=== PATIENT | female | born 1985 | race Two or more races ===

== ENCOUNTER 2024-09-25 22:56 | Emergency (ER) | payer MEDICAID, SELFPAY ==
[2024-09-25 22:57] VITALS: BMI 35.9
--- NOTE | 2024-09-25 23:52 | XR_ITS ---
Examination: CT abdomen and pelvis without contrast. Coronal 3-D reconstructions. Sagittal 2-D reconstructions. Date and time of exam:September 26, 2024 0238 hours INDICATIONS: Onset abdominal pain and right upper abdomen tenderness today CTDI: vol (mGy): 11 DLP: (mGycm): 630 Technique: Axial images of the abdomen have been obtained, 3 mm slice thickness Intravenous contrast material has not been administered. Low dose protocols were performed. One or more of the following dose reduction techniques were used; automated exposure control, adjustment of the mA and/or KV according to patient size, use of iterative reconstruction technique. Findings: Fatty infiltration throughout the liver, no gallstones No pancreatic mass No renal or ureteral calculi Aorta normal size Appendix is mildly thickened but no periappendiceal inflammatory change I do not visualize definite colitis of the descending colon or other portions of the colon No pelvic mass The osseous structures are intact IMPRESSION: The appendix is mildly thickened but no periappendiceal inflammatory change, the appearance should be clinically correlated
--- NOTE | 2024-09-26 | XR_ITS ---
Examination: Abdomen sonogram, Limited Date and time of exam: September 26, 2024 0146 hours INDICATIONS: Epigastric pain beginning today Technique: Real-time perez scale transabdominal sonographic images of the upper abdomen obtained. Findings: Normal gallbladder Common bile duct 0.7 cm Pancreatic head 2.9 cm There are 15.7 cm fatty infiltration no focal liver lesions Normal hepatopedal portal venous flow Peak IVC IMPRESSION: Common bile duct enlargement 0.7 cm no definite stones, if biliary colic is a cortical consideration, suggest MRCP follow-up
--- NOTE | 2024-09-26 00:01 | EDNOTE_ITS ---
ED Abdominal Pain RME/HPI General Chief Complaint: Abdominal Pain Stated complaint: DIARRHEA, ABD PAIN Time seen by provider: 09/25/24 23:51 Arrival date/time: 09/25/24 22:56 RME / HPI RME / HPI narrative: This section includes all my notes and documentations, including HPI, PE, and ED course. Sam Agrawal MD HPI: 39 y/o female presents to ED c/o lower abdominal pain, diarrhea, nausea for a few days, severe in the past 12 hours. Denies vomiting and fever. Patient has not been eating or drinking normally today. Denies possibility of being and reports LMP was 08/29/2024. Also denies any history if abdominal surgery. No other complaints. ROS: All negative except as documented in HPI. Physical Exam: General: Alert and oriented. Appears uncomfortable. Eyes: Conjunctivae and lids clear. ENT: No nasal congestion. Neck: Supple. Heart: RRR. Lungs: No respiratory distress. Good air movement. No rhonchi, wheezing, rales. Abdomen: Soft with diffuse tenderness, difficult to localize. Normal bowel sounds. No distension. No rebound or guarding. Back: No CVA tenderness. Skin: Warm and dry. Neuro: Alert and oriented X 3. I reviewed all diagnostic test results. My review of the abdominal CT report is colitis. My review of the gallbladder US report is NAD. Blood tests and urine tests unremarkable. At this point, diagnoses include colitis. Treatment here included IV fluid, Toradol, Zofran, Dilaudid, Levaquin, Flagyl. Significant improvement noted. Recommended more outpatient care. Based on my best medical judgment, made decision no further evaluation or treatm ent indicated at this time. Patient understands and agrees to the discharge instructions customized and printed, see below. Discharge instructions from Dr. Agrawal: 1. After extensive evaluation, your symptoms are due to colitis, infection/inflammation of your colon. 2. Take Cipro and Flagyl for the infection. 3. Zofran for nausea/vomiting. 4. Tylenol with codeine for severe pain. 5. Clear liquid diet for 24 hours then advance as tolerated. 6. For diarrhea, don't take anything to stop it. But replenish the fluid and electrolytes you are losing. To prevent dehydration, increase oral fluid and maintain clear urine.? If dark or yellow, increase oral fluid. Some good choices are water (but not only water because it will cause electrolyte abnormalities), sports drinks like Gatorade (with less sugar content), coconut water, chicken stock, and other fluid with electrolytes (like Pedialyte). 7. See a private doctor on 09/27/2024 for recheck. Ask to review all test results and official radiology reports, to make sure you receive all necessary follow-ups and monitoring. To assess for serious intra-abdominal condition, ask for help with more investigation not available here in the ER. Such as EGD or scoping the stomach, colonoscopy or scoping the colon, and referral to see instrument repair technician. 8. Seek immediate medical care with worsening, fever, or with any concerns. Sam Agrawal MD Related Data Previous Rx's ?Medication ?Instructions ?Recorded sulfamethoxazole 800 See Rx Instructions .Route 1 07/01/17 mg-trimethoprim 160 mg tablet .COMPLEX #20 tabs (Bactrim DS) acetaminophen 300 mg-codeine 30 mg 2 tab PO Q8H PRN pa in #20 tabs 09/26/24 tablet ciprofloxacin HCl 500 mg tablet 500 mg PO BID #20 tabs 09/26/24 (Cipro) metronidazole 500 mg tablet 500 mg PO BID 10 days #20 tabs 09/26/24 ondansetron 4 mg disintegrating 4 mg PO TID PRN nausea and 09/26/24 tablet vomiting 30 days #10 tabs Allergies Allergy/AdvReac Type Severity Reaction Status Date / Time No Known Allergies Allergy Verified 04/30/18 13:00 Review of Systems Review of Systems Systems Reviewed: All systems reviewed, normal except as documented ED Exam Narrative Physical exam: Refer to HPI above Course Quality Measures none Orders Category Date Time Status Saline [Insert IV] NOW Care 09/25/24 23:51 Active Straight [In and Out Catheter] X1 Care 09/25/24 23:[address] abdomen pelvis wo con Stat Exams 09/25/24 23:52 Taken US gall bladder Stat Exams 09/26/24 00:00 Taken Amylase Stat Lab 09/25/24 00:25 Completed Bilirubin,Direct Stat Lab 09/25/24 00:25 Completed CBC Stat Lab 09/25/24 00:25 Completed CMP [Comprehensive Metabolic Panel] Stat Lab 09/25/24 00:25 Completed HCG Qualitative,Urine Stat Lab 09/26/24 01:56 Completed HCG,Qualitative Serum Stat Lab 09/25/24 00:25 Completed Lipase Stat Lab 09/25/24 00:25 Completed Magnesium Stat Lab 09/25/24 00:25 Completed UA, C/S IF [Urinalysis, C/S if Indicated] Stat Lab 09/26/24 01:56 Completed HYDROmorphone INJ [Dilaudid Inj] Med 09/26/24 03:24 Discontinued 1 mg IVP X1 ONE Ketorolac Inj [Toradol Inj] Med 09/25/24 23:51 Discontinued 30 mg IVP X1 ONE Levofloxacin [Levaquin] Med 09/26/24 04:10 Discontinued 500 mg PO X1 ONE Ondansetron Inj [Zofran Inj] Med 09/25/24 23:51 Discontinued 4 mg IV X1 ONE Sodium Chloride 0.9% 1000 ml [Ns] 1,000 ml Med 09/25/24 23:51 Discontinued IV 999 mls/hr metroNIDAZOLE [Flagyl] Med 09/26/24 04:10 Discontinued 500 mg PO X1 ONE Vital Signs Vital signs: Vital Signs Temperature 97.9 F 09/26/24 00:40 Pulse Rate 68 09/26/24 00:40 Respiratory Rate 12 09/26/24 00:40 Blood Pressure 113/69 09/26/24 00:40 Pulse Oximetry (%) 100 09/26/24 00:40 Oxygen Delivery Method CPAP 09/26/24 00:40 Abdominal Pain MDM MDM Narrative MDM Narrative:: Scribe Attestation: Jessica Peterson am scribing for and in the presence of Dr. Agrawal. Provider Notation: Although this document has been carefully reviewed, there may still be some phonetic and other typographical errors.? These errors are purely grammatical due to imperfections in the software program and should not be construed in any way to? compromise the substance of the patient's medical care during this visit. 39 y/o female presents to ED c/o lower abdominal pain, diarrhea, dysuria, and decreased urinary urgency x approximately 10 hours. Patient data External records reviewed:: [facility] previous records (No recent ED records available for review.) Clinical information provided by:: patient Social determinants that could affect healthcare access:: none Patient has the following chronic illnesses:: None reported How is presenting disease/condition affected by chronic disease/condition?: no chronic disease Evaluation data The following diagnostics were reviewed and interpreted by me:: lab results and radiology exam(s) Lab and/or radiology exams considered but not ordered:: None Interpretation Summary: I reviewed all diagnostic test results. My review of the abdominal CT report is colitis. My review of the gallbladder US report is NAD. Blood tests and urine tests unremarkable. Medications / Prescriptions Medications or Prescriptions considered but not ordered:: None Medication administrations:: Medication Administration History Discontinued Medications Hydromorphone HCl (Hydromorphone Inj 2 Mg/Ml Vial) 1 mg IVP X1 ONE Stop: 09/26/24 03:25 Sodium Chloride (Ns) 1,000 mls @ 999 mls/hr IV .Q1H1M ONE Stop: 09/26/24 00:51 Last Admin: 09/26/24 00:32 Dose: 999 mls/hr Documented By: TARUN Ketorolac Tromethamine (Ketorolac Inj 30 Mg/Ml Vial) 30 mg IVP X1 ONE Stop: 09/25/24 23:52 Last Admin: 09/26/24 01:33 Dose: 30 mg Documented By: TARUN Levofloxacin (Levofloxacin 250 Mg Tablet) 500 mg PO X1 ONE Stop: 09/26/24 04:11 Metronidazole (Metronidazole 250 Mg Tablet) 500 mg PO X1 ONE Stop: 09/26/24 04:11 Ondansetron HCl (Ondansetron Inj 2 Mg/Ml Inj 2 Ml) 4 mg IV X1 ONE; Protocol Stop: 09/25/24 23:52 Last Admin: 09/26/24 00:29 Dose: 4 mg Documented By: TARUN Treatment here included IV fluid, Toradol, Zofran, Dilaudid, Levaquin, Flagyl. Consultations Consultation(s) initiated? (list below): No Diagnosis Differential diagnosis abdominal pain: abdominal pain, acute appendicitis, calc ulus of kidney, constipation, diverticulitis, gastroenteritis, pancreatitis, small bowel obstruction and other (Colitis) Most likely diagnosis given after review of the tests above:: Colitis Admission Indicated Admission indicated?: not indicated Explain why admission is indicated or not indicated:: With significant improvement, there was no indication for admission. Admission Request Was there a request for admission?: No Disposition Plan Disposition Plan: Discharge Discharge Attestation Discharge Attestation: The patient and all family members were given an opportunity to ask questions and understood the discharge instructions. Discharge instructions specifically effects, indications for sooner follow up or return to the emergency department, and the expected course of current diagnosis. Patient condition: Stable Discharge Plan Plan Patient Disposition: HOME (Self Care) Prescriptions/Referrals Prescriptions/Med Rec: New metronidazole 500 mg tablet 500 mg PO BID 10 Days Qty: 20 0RF acetaminophen-codeine 300-30 mg tablet 2 tab PO Q8H MDD 6 PRN (Reason: pain) Qty: 20 0RF ciprofloxacin HCl [Cipro] 500 mg tablet 500 mg PO BID Qty: 20 0RF ondansetron 4 mg tablet,disintegrating 4 mg PO TID PRN (Reason: nausea and vomiting) 30 Days Qty: 10 0RF No Action sulfamethoxazole-trimethoprim [Bactrim DS] 800-160 mg tablet See Rx Instructions .ROUTE .COMPLEX Qty: 20 0RF Rx Instructions: 1 tablet p.o. twice daily for 10 days Referrals: Aron English MD [Primary Care Provider] - In 1 week Problem List Clinical Impression: Colitis Patient/Caregiver Discharge Instructions Discharge Activity: activity as tolerated Education Materials: ED Crohn's Disease, ED Ulcerative Colitis Additional Instructions: Discharge instructions from Dr. Agrawal: 1. After extensive evaluation, your symptoms are due to colitis, inf ection/inflammation of your colon. 2. Take Cipro and Flagyl for the infection. 3. Zofran for nausea/vomiting. 4. Tylenol with codeine for severe pain. 5. Clear liquid diet for 24 hours then advance as tolerated. 6. For diarrhea, don't take anything to stop it. But replenish the fluid and electrolytes you are losing. To prevent dehydration, increase oral fluid and maintain clear urine.? If dark or yellow, increase oral fluid. Some good choices are water (but not only water because it will cause electrolyte abnormalities), sports drinks like Gatorade (with less sugar content), coconut water, chicken stock, and other fluid with electrolytes (like Pedialyte). 7. See a private doctor on 09/27/2024 for recheck. Ask to review all test results and official radiology reports, to make sure you receive all necessary follow-ups and monitoring. To assess for serious intra-abdominal condition, ask for help with more investigation not available here in the ER. Such as EGD or scoping the stomach, colonoscopy or scoping the colon, and referral to see instrument repair technician. 8. Seek immediate medical care with worsening, fever, or with any concerns. Instrucciones de david del Dr. Agrawal: 1. Tras ruel evaluaci?n exhaustiva, magdalena s?ntomas se deben a colitis, infecci?n/inflamaci?n del colon. 2. Welby Ciprofloxacino y Flagyl para la infecci?n. 3. Zofran para las n?useas/v?mitos. 4. Tylenol con code?na para el dolor intenso. 5. Dieta de l?quidos [facility] 24 horas y luego aumente la dosis seg?n la tolerancia. 6. En anupam de diarrea, no tome nada para detenerla. Reponga los l?quidos y electrolitos que est? perdiendo. Para prevenir la deshidrataci?n, aumente la ingesta de l?quidos y mantenga la orina faiza. Si es oscura o amarilla, aumente la ingesta de l?quidos. Algunas buenas opciones son el agua (aggie no solo agua, ya que puede causar anomal?as electrol?greg), bebidas deportivas david Gatorade (con menos contenido de az?car), agua de elbert, caldo de larry y otros l?quidos con electrolitos (david Pedialyte). 7. Consulte con un m?dico particular el 27/09/2024 para ruel nueva revisi?n. Solicite la revisi?n de todos los resultados de las pruebas y los informes radiol?gicos oficiales para asegurarse de recibir todos los seguimientos y la monitorizaci?n necesarios. Para evaluar ruel afecci?n intraabdominal grave, solicite ayuda con otras pruebas que no est?n disponibles en urgencias, david la endoscopia estomacal (EGD) o la endoscopia g?strica, la colonoscopia o la endoscopia de colon, y la derivaci?n a un gastroenter?logo. 8. Busque atenci?n m?dica inmediata si presenta empeoramiento, fiebre o cualquier inquietud. Print Language: Frisian Stand Alone Forms: Danielle Award Info., Patient Portal Info Letter
[2024-09-26] MEDS: ONDANSETRON INJ 2 MG/ML INJ 2 ML 4 MG IV (00:29)
[2024-09-26] MEDS: SODIUM CHLORIDE 0.9% 1000 ML 1,000 ML 999 ML IV (00:32)
[2024-09-26 00:40] VITALS: BP 113/69; PULSE 68; RESP 12; TEMP 36.6; O2SAT 100
[2024-09-26 00:58] LABS: Basophils % (Auto) 1 % (0-2.5); Eosinophils # (Auto) 0.2 Thou/mm3 (0.0-0.5); Eosinophils % (Auto) 2 % (0-10); Hematocrit 38.9 % (36.0-46.0); Hemoglobin 13.4 g/dL (12.0-16.0); Immature Granulocytes % (Auto) 0 % (0-0); Immature Granulocytes Auto 0.01 Thou/mm3 (0.00-0.00); Lymphocytes # (Auto) 2.9 Thou/mm3 (1.0-4.8); Lymphocytes % (Auto) 33 % (10-50); Mean Corpuscular HGB Conc 34.4 g/dl (31.0-37.0); Mean Corpuscular Hemoglobin 29.5 pg (25.0-35.0); Mean Corpuscular Volume 86 fL (80-100); Monocytes # (Auto) 0.9 Thou/mm3 (0.0-0.8); Monocytes % (Auto) 10 % (0-12); Neutrophils # (Auto) 4.6 Thou/mm3 (1.8-7.7); Neutrophils % (Auto) 54 % (37-80); Nucleated Red Blood Cell % 0 /100 WBC (0); Platelet Count 217 Thou/mm3 (140-440); RDW Standard Deviation 39.5 fL (36.4-46.3); Red Blood Count 4.55 Miln/mm3 (4.00-5.20); White Blood Count 8.6 Thou/mm3 (3.6-11.0)
[2024-09-26 01:13] LABS: Alanine Aminotransferase 13 U/L (10-49); Albumin, Serum 4.4 gm/dL (3.5-5.0); Albumin/Globulin Ratio 1.6 (1.2-2.2); Alkaline Phosphatase 51 U/L (46-116); Amylase 73 U/L (30-118); Anion Gap 10 (7-16); Aspartate Amino Transferase 13 U/L (0-34); BUN/Creatinine Ratio 11 Ratio (12-20); Bilirubin,Direct 0.1 mg/dL (0.0-0.3); Bilirubin,Total 0.3 mg/dL (0.3-1.2); Blood Urea Nitrogen 8 mg/dL (9-23); Calcium 8.6 mg/dL (8.3-10.6); Calcium (Corrected) 8.6 mg/dL (8.5-10.1); Carbon Dioxide 25.5 mMol/L (20.0-31.0); Chloride 109 mMol/L (98-107); Creatinine (Component) 0.7 mg/dL (0.6-1.3); Estimated Creatinine Clearance 107.6 mL/min (>60); Globulin 2.7 gm/dL (2.3-3.5); Glucose 101 mg/dL (74-106); Lipase 42 U/L (12-53); Magnesium 1.8 mg/dL (1.6-2.6); Osmolality,Calculated 285 (275-295); Potassium 3.8 mMol/L (3.4-5.1); Sodium 144 mMol/L (136-145); Total Protein 7.1 gm/dL (5.7-8.2); eGFR > 60 See Note
[2024-09-26 01:29] LABS: HCG,Qualitative Serum Negative
[2024-09-26] MEDS: KETOROLAC INJ 30 MG/ML VIAL IVP (01:33)
[2024-09-26 01:37] VITALS: BP 107/64; PULSE 77; RESP 17; TEMP 36.7; O2SAT 100
[2024-09-26 02:02] LABS: Collection Type, Urine Clean Catch; Squamous Epithelial Cell,Urine 0 /hpf (0-5)
[2024-09-26 02:12] LABS: Bilirubin,Urine Negative (Negative); Blood,Urine 2+ (Negative); Clarity,Urine Clear (Clear/Hazy); Color,Urine Lt-Yellow (Lt Yel-Yel); Culture Indicated,Urine Not Indicated; Glucose, Urine Negative (Negative); Ketones,Urine Negative (Negative); Leukocyte Esterase,Urine Positive (Negative); Nitrite,Urine Negative (Negative); Protein,Urine Negative (Neg - Trace); RBC,Urine 5 /hpf (0-3); Specific Gravity,Urine 1.014 (1.001-1.035); Urobilinogen,Urine Negative mg/dL (0.0-1.0); WBC,Urine 4 /hpf (0-5)
[2024-09-26 02:13] LABS: HCG Qualitative,Urine Negative
--- NOTE | 2024-09-26 03:26 | PRELIM_ITS ---
Gallbladder ultrasound. September 26, 2024 at 0146 hours Clinical history: Right upper quadrant tenderness Comparison: None. Findings: The evaluation is limited due to body habitus and overlying bowel gas. Gallbladder wall is 2 mm thick. No cholelithiasis, gallbladder sludge or polyps. Common bile duct is 7 mm in diameter. Pancreas is obscured. Liver is echogenic. No focal hepatic lesion. Liver is 15.7 cm long. Main portal vein is antegrade. Inferior vena cava is patent. Impression: Fatty liver. Normal gallbladder Report Electronically Signed By: Justin Cage 09/26/2024 3:25:51 AM [EST]
--- NOTE | 2024-09-26 03:55 | PRELIM_ITS ---
CT scan of the abdomen and pelvis without intravenous contrast (axial sections with sagittal and coronal reformats) September 26, 2024 at 0238 hours Clinical History: Abdominal pain. Comparison: No prior study is available for comparison. Findings: Clear lung bases. Liver, gallbladder , spleen, pancreas, adrenal glands and kidneys are unremarkable. Appendix is mildly thickened, 9 mm in diameter, image 145 without appendicolith and adjacent fat stranding. The wall of the appendiceal tip is normal thickness, image 156. The urinary bladder is normal. There is no adnexal cyst or mass. No free intraperitoneal air or fluid. Probable wall thickening of the descending colon.No urinary tract stone or obstruction is identified. The abdominal wall is unremarkable. No acute osseous process. Impression: 1. No urinary tract stone or obstruction is identified. 2. Suspect colitis of the descending colon. 3. Mildly prominent appendix without definite findings of appendicitis. Report Electronically Signed By: Justin Cage 09/26/2024 3:54:45 AM [EST]
[2024-09-26] MEDS: HYDROmorphone INJ 2 MG/ML VIAL 1 MG IVP (04:30)
[2024-09-26] MEDS: metroNIDAZOLE 250 MG TABLET 500 MG PO (05:12)
[2024-09-26] MEDS: LEVOFLOXACIN 250 MG TABLET 500 MG PO (05:13)
== END 2024-09-26 06:20 | disposition home or self-care (01) ==
PROVIDERS: Emergency Provider Emergency Medicine; PCP Family Medicine
DX: K52.9 Noninfective gastroenteritis and colitis, unspecified (principal); R10.13 Epigastric pain
CPT/HCPCS: 36415; 74176; 76705; 80053; 81001; 81025; 82150; 82248; 83690; 83735; 84703; 85025; 99284; J1171; J1885; J2405; J7030; A9270